=== PATIENT | female | born 2000 | race American Indian/Alaskan Native ===

== ENCOUNTER 2021-08-24 23:19 | Outpatient (CLI) | payer MEDICAID | END 2021-08-25 00:47 | disposition home or self-care (01) | LOC: TRG 23:19 → APU 23:27 → TRG 08-25 00:47 | PROVIDERS: ATTEND Obstetrics & Gynecology | DX: Z34.93 Encounter for supervision of normal pregnancy, unspecified, third trimester (principal); Z3A.39 39 weeks gestation of pregnancy | CPT/HCPCS: 59025 ==

== ENCOUNTER 2021-08-26 19:48 | Inpatient (IN) | payer MEDICAID ==
[2021-08-26] MEDS ORDERED: LACTATED RINGERS 1,000 ML ONE (21:39)
[2021-08-26] MEDS ORDERED: LACTATED RINGERS 250 ML IV SOLN IV ONE (21:57)
[2021-08-26] MEDS ORDERED: NalbUPHINE 10 MG/1 ML INJ IV PRN (21:57)
[2021-08-26] MEDS ORDERED: diphenhydrAMINE 50 MG/ML VIAL IV PRN (21:57)
[2021-08-26] MEDS ORDERED: NALOXONE 2 MG/2 ML INJ IV PRN (21:57)
[2021-08-26] MEDS ORDERED: ONDANSETRON 4 MG/2 ML INJ IV PRN (21:57)
[2021-08-26] MEDS ORDERED: AMPICILLIN/NS 2 GM/100 ML 2 GM/100 ML BAG IV ONE (21:58)
[2021-08-26] MEDS ORDERED: fentaNYL-BUPIV 2 MCG/ML-0.125% 200 MCG/100 ML BAG EPIDURAL SCH (22:00)
[2021-08-26] MEDS ORDERED: BUTORPHANOL 2 MG/1 ML INJ IV PRN (22:03)
[2021-08-26] MEDS ORDERED: LACTATED RINGERS 1,000 ML IV SCH (22:15)
[2021-08-26 22:20] LABS: Basophils % (Auto) 0.2 % (0.0-1.8); Eosinophils % (Auto) 0.2 % (0.0-4.3); Hematocrit 33.7 % (30.3-42.9); Hemoglobin 11.1 gm/dl (10.1-14.3); Lymphocytes # (Auto) 1.5 K/mm3 (1.2-5.4); Lymphocytes % (Auto) 8.2 % (13.4-35.0); Mean Corpuscular HGB Conc 33 % (30-34); Mean Corpuscular Volume 83 fl (79-97); Monocytes # (Auto) 0.8 K/mm3 (0.0-0.8); Monocytes % (Auto) 4.1 % (0.0-7.3); Platelet Count 258 K/mm3 (140-440); Red Blood Count 4.06 M/mm3 (3.65-5.03); Red Cell Distribution Width 15.7 % (13.2-15.2)
--- NOTE | 2021-08-26 22:52 | Anesthesia Consultation ---
Anesthesia Consult and Med Hx Date of service: 08/26/21 - Airway Anesthetic Teeth Evaluation: Good ROM Head & Neck: Adequate Mental/Hyoid Distance: Adequate Mallampati Class: Class III Intubation Access Assessment: Possibly Difficult - Pulmonary Exam CTA: Yes - Cardiac Exam Cardiac Exam: RRR - Pre-Operative Health Status ASA Pre-Surgery Classification: ASA2 Proposed Anesthetic Plan: Epidural - Pulmonary Hx Smoking: No Hx Asthma: Yes Hx Sleep Apnea: No - Cardiovascular System Hx Hypertension: No Hx Heart Attack/AMI: No Hx Angina: No - Central Nervous System Hx Seizures: No Hx Psychiatric Problems: No - Gastrointestinal Hx Gastroesophageal Reflux Disease: No - Endocrine Hx Renal Disease: No Hx Liver Disease: No Hx Insulin Dependent Diabetes: No Hx Non-Insulin Dependent Diabetes: No Hx Hypothyroidism: No Hx Hyperthyroidism: No - Hematic Hx Anemia: Yes Hx Sickle Cell Disease: No - Other Systems Hx Alcohol Use: No Hx Obesity: Yes
--- NOTE | 2021-08-26 22:54 | Progress Note ---
Labor Epidural - Labor Epidural Start Time: 22:30 Stop Time: 22:46 Performed by:: BONY KHAN Procedure: Patient is requesting epidural for labor and pain. H&P, labs were reviewed. Patient IDed, H&P reviewed, all questions and concerns were answered, and consent was signed. Timeout was performed at bedside. Patient in sitting position. Sterile prep and drape was performed. 3ml of 1% lidocaine skin wheal at L[2]- L [3]. 18-gauge hustead epidural needle was advanced without success. 3ml of 1% lidocaine skin wheal at L[3]- L [4]. 18-gauge hustead epidural needle was advanced to loss of resistance with air technique 9cm. Negative CSF negative blood. Epidural catheter advanced to [14] centimeters. [negative] Aspiration [negative] test dose. Sterile dressing applied. Patient tolerated procedure.
[2021-08-26] MEDS ORDERED: OXYTOCIN DRIP 30 UNITS/500 ML BAG IV SCH (23:00)
[2021-08-26] MEDS: ePHEDrine SULFATE 50 MG/1 ML INJ IV PRN ×2 (23:18→23:21)
--- NOTE | 2021-08-26 23:50 | History and Physical Report ---
History of Present Illness Date of examination: 08/26/21 Date of admission: 08/26/21 Chief complaint: painful contractions. History of present illness: Primigravida, MARIA E 08/29/21. Reported no complications. Past History Past Medical History: asthma Past Surgical History: no surgical history - Obstetrical History Expected Date of Delivery: 08/29/21 Actual Gestation: 39 Week(s) 4 Day(s) : 1 Medications and Allergies Allergies Allergy/AdvReac Type Severity Reaction Status Date / Time No Known Allergies Allergy Verified 08/26/21 21:45 Active Meds: Active Medications Butorphanol Tartrate (Butorphanol 2 Mg/1 Ml Inj) 2 mg IV Q2H PRN PRN Reason: Labor Pain Diphenhydramine HCl (Diphenhydramine 50 Mg/Ml Vial) 12.5 mg IV Q2H PRN PRN Reason: Itching Ephedrine Sulfate (Ephedrine Sulfate 50 Mg/1 Ml Inj) 10 mg IV Q2M PRN PRN Reason: Hypotension Last Admin: 08/26/21 23:21 Dose: 10 mg Documented by: Fentanyl/Bupivacaine/Sodium Chlor (Fentanyl-Bupiv 2 Mcg/Ml-0.125%) 200 mcg in 100 mls @ 12 mls/hr EPIDURAL TITR BIRD; Protocol Oxytocin/Sodium Chloride (Pitocin/Ns 30 Unit/500ml) 30 units in 500 mls @ 1 mls/hr IV TITR BIRD; Protocol Ampicillin Sodium (Ampicillin/Ns 1 Gm/50 Ml) 1 gm in 50 mls @ 100 mls/hr IV Q4H BIRD; Protocol Lactated Ringer's (Lactated Ringers) 1,000 mls @ 125 mls/hr IV DIRECT BIRD Last Admin: 08/26/21 22:41 Dose: 125 mls/hr Documented by: Nalbuphine HCl (Nalbuphine 10 Mg/1 Ml Inj) 2.5 mg IV Q2H PRN PRN Reason: Itching Naloxone HCl (Naloxone 2 Mg/2 Ml Inj) 0.2 mg IV Q5M PRN PRN Reason: Respiratory sedation Ondansetron HCl (Ondansetron 4 Mg/2 Ml Inj) 4 mg IV Q8H PRN PRN Reason: Nausea And Vomiting Review of Systems All systems: negative Genitourinary: leakage of fluid, contractions - Vital Signs Vital signs: Vital Signs Temp Pulse Resp BP Pulse Ox 98.0 F 86 18 129/69 100 08/26/21 20:30 08/26/21 20:30 08/26/21 20:30 08/26/21 20:30 08/26/21 20:30 Temp Pulse Resp BP Pulse Ox 98.0 F 98 H 18 117/55 100 08/26/21 20:30 08/26/21 23:39 08/26/21 20:30 08/26/21 23:38 08/26/21 23:39 - Physical Exam Breasts: Positive: deferred Lungs: Positive: Normal air movement Abdomen: Positive: distention Genitourinary (Female): Positive: normal external genitalia Vagina: Positive: normal moisture Uterus: Positive: enlarged, normal contour Anus/Rectum: Positive: normal perianal skin Extremities: Positive: normal Deep Tendon Reflex Grade: Normal +2 - Obstetrical FHR: category 1 Uterine Contraction Monitor Mode: External Cervical Dilatation: 7 Cervical Effacement Percentage: 100 (pelvis adequate) station: 0+1 Uterine Contraction Intensity: Moderate Results Result Diagrams: 08/26/21 21:50 Abnormal lab results 08/26/21 Range/Units 21:50 WBC 18.6 H (4.5-11.0) K/mm3 MCH 27 L (28-32) pg RDW 15.7 H (13.2-15.2) % Lymph % (Auto) 8.2 L (13.4-35.0) % Seg Neutrophils % 87.3 H (40.0-70.0) % Seg Neutrophils # 16.2 H (1.8-7.7) K/mm3 All other labs normal. Assessment and Plan - Patient Problems (1) Active labor Current Visit: Yes Status: Acute Plan to address problem: Vag delivery expected.
[2021-08-27] MEDS ORDERED: MINERAL OIL 30 ML ORAL LIQD ONE (00:01)
[2021-08-27] MEDS ORDERED: LANOLIN/ZINC/DIMETHICONE (LANSINOH) 7 GM TP PRN (00:57)
[2021-08-27] MEDS ORDERED: WITCH HAZEL/ GLYCERIN PAD TP PRN (00:57)
[2021-08-27] MEDS ORDERED: PROMETHAZINE 25 MG RECT SUPP PR PRN (00:57)
[2021-08-27] MEDS ORDERED: ACETAMINOPHEN 325 MG TAB PO PRN (00:57)
[2021-08-27] MEDS ORDERED: diphenhydrAMINE 25 MG CAP PO PRN (00:57)
[2021-08-27] MEDS ORDERED: HYDROcodone/ACETAMINOPHEN 5-325 MG TAB PO PRN (00:57)
[2021-08-27] MEDS ORDERED: ONDANSETRON 4 MG/2 ML INJ IV PRN (00:57)
[2021-08-27] MEDS ORDERED: MAGNESIUM HYDROXIDE (MOM) ORAL LIQD UDC PO PRN (00:57)
[2021-08-27] MEDS ORDERED: KETOROLAC 30 MG/1 ML INJ IV PRN (00:57)
[2021-08-27] MEDS ORDERED: PROMETHAZINE 25 MG TAB PO PRN (00:57)
--- NOTE | 2021-08-27 01:09 | Procedure Note ---
OB Delivery Note - Delivery Date of Delivery: 08/27/21 Surgeon: CHIRAG JIMENEZ Estimated blood loss: <100cc - Vaginal Delivery presentation: vertex Delivery position: OA Intrapartum events: none, PROM->1hr before delivery Delivery induction: none Delivery monitor: external FHT, external uterine Route of delivery: Delivery placenta: spontaneous, expressed Delivery cord: 3 umbilical vessels Episiotomy: none Delivery laceration: none Anesthesia: epidural - A at 1 minute: 8 at 5 minutes: 9 Infant Gender: Female
[2021-08-27] MEDS ORDERED: AMPICILLIN/NS 1 GM/50 ML 1 GM/50 ML BAG IV SCH (02:00)
[2021-08-27] MEDS: IBUPROFEN 600 MG TAB PO SCH ×3 (04:54→18:05)
--- NOTE | 2021-08-27 08:17 | Post Anesthesia Evaluation ---
- Post Anesthesia Evaluation Patient Participated: Yes Airway Patent: Yes Stable Respiratory Function: Yes Nausea/Vomiting: No Temp > 96.8F: Yes Pain Manageable: Yes Adequeate Hydration: Yes Anesthesia Complications: No Block Receding Appropriately: Yes Patient on Ventilator: No
[2021-08-27] MEDS: DOCUSATE SODIUM 100 MG CAP PO SCH ×2 (10:21→22:14)
[2021-08-27 14:38] LABS: Hematocrit 32.5 % (30.3-42.9); Hemoglobin 10.7 gm/dl (10.1-14.3)
[2021-08-28] MEDS: IBUPROFEN 600 MG TAB PO SCH ×4 (00:32→17:26)
[2021-08-28] MEDS ORDERED: TETANUS,DIPH,PERTUSS(ACELL) VACCINE 0.5 ML SYRINGE IM ONE (06:00)
--- NOTE | 2021-08-28 10:24 | Progress Note ---
Assessment and Plan - Patient Problems (1) Active labor Current Visit: Yes Status: Acute (2) Status post normal vaginal delivery Current Visit: Yes Status: Acute Plan to address problem: Stable and ready for home later today/early next morning if all remain ok. Subjective - Subjective Date of service: 08/28/21 Principal diagnosis: Status post day 1.5 Interval history: Primigravida, MARIA E 08/29/21. Reported no complications. Patient reports: appetite normal, voiding normally, pain well controlled, ambulating normally [place]: doing well Objective - Vital Signs Latest vital signs: Vital Signs Temp Pulse Resp BP BP Pulse Ox Pulse Ox 08/28/21 08:00 100 08/28/21 07:30 97.8 F 82 20 129/54 97 08/27/21 23:35 98.0 F 86 18 136/58 96 08/27/21 19:50 100 08/27/21 15:50 98 F 100 H 20 110/57 08/27/21 13:08 98.1 F 100 H 20 110/46 Intake and Output 08/27/21 08/28/21 08/28/21 23:59 07:59 15:59 Intake Total 120 400 Balance 120 400 Intake: Oral 120 400 Other: Total, Intake Amount 120 200 # Voids Void 1 1 - Exam Breasts: Present: deferred Lungs: Present: Normal air movement Abdomen: Present: normal appearance, soft, normal bowel sounds Uterus: Present: normal, firm Extremities: Present: normal Deep Tendon Reflex Grade: Normal +2
--- NOTE | 2021-08-28 10:28 | Discharge Summary ---
Providers - Providers Date of Admission: 08/27/21 01:00 Date of discharge: 08/28/21 Attending physician: CHIRAG JIMENEZ MD Primary care physician: CHIRAG JIMENEZ MD Hospitalization Reason for admission: active labor, IUP at term Delivery: Episiotomy: none Laceration: none Other procedures: none complications: none Discharge diagnosis: IUP at term delivered baby: female Condition at discharge: Good Disposition: 01 HOME / SELF CARE / HOMELESS - Discharge Diagnoses (1) Active labor Status: Resolved (2) Status post normal vaginal delivery Status: Acute Plan - Provider Discharge Summary Activity: routine, no sex for 6 weeks, no heavy lifting 4 weeks, no strenuous exercise Diet: routine Instructions: routine Additional instructions: [] Smoking cessation referral if applicable(refer to patient education folder for contact #) [] Refer to [facility]'s [facility] Booklet Call your doctor immediately for: * Fever > 100.5 * Heavy vaginal bleeding ( >1 pad per hour) * Severe persistent headache * Shortness of breath * Reddened, hot, painful area to leg or breast * Drainage or odor from incision. * Keep incision clean and dry at all times and follow doctor's instructions regarding bathing/showering - Follow up plan Follow up: CHIRAG JIMENEZ MD [Primary Care Provider] - 7 Days Forms: [facility] Discharge Summary
[2021-08-28] MEDS: DOCUSATE SODIUM 100 MG CAP PO SCH ×2 (11:40→22:27)
[2021-08-28] MEDS ORDERED: PNEUMOCOCCAL 23 Valent 0.5 ML VIAL IM ONE (12:00)
[2021-08-29] MEDS: IBUPROFEN 600 MG TAB PO SCH ×2 (00:09→06:10)
[2021-08-29 07:58] VITALS: BP 135/79
[2021-08-29] MEDS ORDERED: MEASLES, MUMPS & RUBELLA 12,500 UNIT/0.5 ML VACCINE SUB-Q ONE (10:40)
== END 2021-08-29 10:20 | disposition home or self-care (01) | DRG 775 ==
LOC: TRG 19:48 → APU 19:56 → LD 22:25 → TRG 08-27 00:57 → LD 08-27 01:00 → OB 08-27 02:44
PROVIDERS: ADMIT Obstetrics & Gynecology; ATTEND Obstetrics & Gynecology
PROC: 10E0XZZ Delivery of Products of Conception, External Approach (ICD-10-PCS; principal; 2021-08-27)
PROC: 3E0R3BZ Introduction of Anesthetic Agent into Spinal Canal, Percutaneous Approach (ICD-10-PCS; 2021-08-27)
PROC: 00HU33Z Insertion of Infusion Device into Spinal Canal, Percutaneous Approach (ICD-10-PCS; 2021-08-27)
DX: O42.02 Full-term premature rupture of membranes, onset of labor within 24 hours of rupture (principal); Z3A.39 39 weeks gestation of pregnancy; Z37.0 Single live birth; Z20.822 Contact with and (suspected) exposure to COVID-19; O99.52 Diseases of the respiratory system complicating childbirth; J45.909 Unspecified asthma, uncomplicated
CPT/HCPCS: 36415; 59025; 84112; 85014; 85018; 85025; 86592; 86706; 86762; 86850; 86900; 86901; 87806; 90471; 90715; 90732; G0378; J0290; J7120; U0003

== ENCOUNTER 2022-02-03 20:47 | Emergency (ER) | payer MEDICAID ==
[2022-02-03 22:32] VITALS: BP 141/63
[2022-02-03] MEDS ORDERED: LIDOCAINE-MPF (1%) 10 MG/1 ML VIAL 5 ML INFILTRATI ONE (23:44)
[2022-02-03] MEDS ORDERED: CLINDAMYCIN 300 MG CAP PO ONE (23:44)
[2022-02-03] MEDS ORDERED: IBUPROFEN 600 MG TAB PO ONE (23:44)
--- NOTE | 2022-02-04 01:53 | Emergency Department Report ---
ED General Adult HPI - General Chief complaint: Dental/Oral Stated complaint: LARGE PAINFUL ABSCESS Source: patient Mode of arrival: Ambulatory Limitations: No Limitations - History of Present Illness Initial comments: Patient is a 21-year-old -French female with a history of morbid obesity and asthma presents to the ED with complaint of acute onset persistent painful left mandibular gingival pain and swelling and left cheek mild erythematous maculopapular painful rash for the last 3 days. Patient states that the pain is especially worsened in the last 12 hours such that any speech or eating makes the pain worse. Patient denies fever, chills, nausea, vomiting, dental pain, dizziness, neck pain, sore throat, headache, chest pain or shortness of breath, diarrhea or abdominal pain. MD Complaint: left cheek swollen painful rash -: Sudden, days(s) (3) Location: face (left cheek) Radiation: non-radiation Severity scale (0 -10): 6 Quality: aching, sharp Consistency: constant Improves with: none Worsens with: eating Associated Symptoms: denies other symptoms, rash (Swollen, painful rash on left cheek). denies: confusion, chest pain, cough, diaphoresis, fever/chills, headaches, loss of appetite, malaise, nausea/vomiting, seizure, shortness of breath, syncope, weakness Treatments Prior to Arrival: none - Related Data Previous Rx's Medication Instructions Recorded Last Taken Type Clindamycin [Clindamycin CAP] 300 mg PO Q6H #40 cap 02/04/22 Unknown Rx Ibuprofen [Motrin] 800 mg PO Q8HR PRN #30 tablet 02/04/22 Unknown Rx Ondansetron [Zofran Odt] 4 mg PO Q8HR PRN #15 tab.rapdis 02/04/22 Unknown Rx Allergies Allergy/AdvReac Type Severity Reaction Status Date / Time No Known Allergies Allergy Verified 08/26/21 21:45 ED Review of Systems ROS: Stated complaint: LARGE PAINFUL ABSCESS Other details as noted in HPI Constitutional: denies: chills, fever Eyes: denies: eye pain, eye discharge, vision change ENT: dental pain (Swollen painful left mandibular gingiva), other (Left cheek swelling with pain due to a mild erythematous rash). denies: ear pain, throat pain Respiratory: denies: cough, shortness of breath, wheezing Cardiovascular: denies: chest pain, palpitations Endocrine: no symptoms reported Gastrointestinal: denies: abdominal pain, nausea, diarrhea Genitourinary: denies: urgency, dysuria, discharge Musculoskeletal: denies: back pain, joint swelling, arthralgia Skin: denies: rash, lesions Neurological: denies: headache, weakness, paresthesias Psychiatric: denies: anxiety, depression Hematological/Lymphatic: denies: easy bleeding, easy bruising ED Past Medical Hx - Past Medical History Previous Medical History?: Yes Hx Hypertension: No Hx Heart Attack/AMI: No Hx Congestive Heart Failure: No Hx Diabetes: No Hx Deep Vein Thrombosis: No Hx Liver Disease: No Hx Renal Disease: No Hx Sickle Cell Disease: No Hx Seizures: No Hx Asthma: Yes Hx COPD: No Hx HIV: No - Surgical History Past Surgical History?: No - Social History Smoking Status: Never Smoker - Medications Home Medications: Home Medications Medication Instructions Recorded Confirmed Last Taken Type Clindamycin [Clindamycin CAP] 300 mg PO Q6H #40 cap 02/04/22 Unknown Rx Ibuprofen [Motrin] 800 mg PO Q8HR PRN #30 tablet 02/04/22 Unknown Rx Ondansetron [Zofran Odt] 4 mg PO Q8HR PRN #15 tab.rapdis 02/04/22 Unknown Rx ED Physical Exam - General Limitations: No Limitations General appearance: alert, in no apparent distress - Head Head exam: Present: atraumatic, normocephalic, normal inspection - Eye Eye exam: Present: normal appearance, PERRL, EOMI Pupils: Present: normal accommodation - ENT ENT exam: Present: mucous membranes moist, normal external ear exam, other (Palpable left mandibular gingiva tenderness with swelling; swollen, tender mild erythematous maculopapular rash on left cheek) - Neck Neck exam: Present: normal inspection, full ROM, lymphadenopathy. Absent: tenderness - Respiratory Respiratory exam: Present: normal lung sounds bilaterally. Absent: respiratory distress, wheezes, rales, rhonchi, chest wall tenderness, accessory muscle use, decreased breath sounds - Cardiovascular Cardiovascular Exam: Present: regular rate, normal rhythm, normal heart sounds. Absent: systolic murmur, diastolic murmur, rubs, gallop - GI/Abdominal GI/Abdominal exam: Present: soft, normal bowel sounds. Absent: tenderness, guarding, rebound, hyperactive bowel sounds, hypoactive bowel sounds, mass - Extremities Exam Extremities exam: Present: normal inspection, full ROM, normal capillary refill - Back Exam Back exam: Present: normal inspection, full ROM. Absent: tenderness, CVA tenderness (R), CVA tenderness (L), muscle spasm, paraspinal tenderness, ve rtebral tenderness - Neurological Exam Neurological exam: Present: alert, oriented X3, CN II-XII intact, normal gait, reflexes normal - Psychiatric Psychiatric exam: Present: normal affect, normal mood - Skin Skin exam: Present: warm, dry, intact, normal color. Absent: rash ED Course Vital Signs 02/03/22 22:28 Temperature 98.2 F Pulse Rate 89 Respiratory 16 Rate Blood Pressure 141/63 [Right] O2 Sat by Pulse 100 Oximetry - I & D Left Cheek Type of Procedure: Simple Site: left cheek Blade Size: 11 I & D Procedure: betadine prep, sterile drapes applied, sterile dressing applied, gauze wick placed Progress: There was cleaned extensively with normal saline and Betadine solution. Lidocaine 1% solution was infiltrated around the area for anesthesia. When anesthesia was fully achieved, an 18-gauge needle was used to us. The contents of the swollen rash and a thick yellow purulent 10 cc discharge drained from the wound. A size 11 scalpel blade was used to open up the wound further and the contents of the wound extensively expressed and emptied and debrided. Patient tolerated the procedure well. The wound was then cleaned extensively normal saline and dressed appropriately with 4 x 4 gauze and Tegaderm. ED Medical Decision Making - Medical Decision Making This is a 21-year-old -French female with a history of morbid obesity and asthma presents to the ED with complaint of acute onset persistent painful left mandibular gingival pain and swelling and left cheek mild erythematous maculopapular painful rash for the last 3 days. Patient states that the pain is especially worsened in the last 12 hours such that any speech or eating makes the pain worse. In the ED, patient is alert and oriented x3 and is not in any distress. Patient was treated for pain in the ED and also given initial oral antibiotics. The left cheek swelling rash was incised and drained per protocol, after the area was cleaned and lidocaine 1% solution infiltrated in the area of for anesthesia. The area was then incised and drained and thick purulent discharge was drained from the area. Patient tolerated the procedure well. On reevaluation, patient's pain is well controlled medication. The wound was then dressed appropriately with 4 x 4 gauze and Tegaderm and the patient was discharged home on pain medications and antibiotics and advised to follow-up with her primary care physician in 7 to 10 days for reevaluation. Patient was advised return to the ED immediately if symptoms get worse. - Differential Diagnosis Cellulitis; gingivitis; facial abscess Critical care attestation.: If time is entered above; I have spent that time in minutes in the direct care of this critically ill patient, excluding procedure time. ED Disposition Clinical Impression: Cutaneous abscess of face, Acute gingivitis Disposition: HOME / SELF CARE / HOMELESS Is pt being admited?: No Does the pt Need Aspirin: No Condition: Stable Instructions: Skin Abscess, [id number] Additional Instructions: Take medication with food, drink plenty of fluids and follow-up with a primary care physician in 7 to 10 days for reevaluation. Return to the ED immediately if symptoms get worse Prescriptions: Clindamycin [Clindamycin CAP] 300 mg PO Q6H #40 cap Ibuprofen [Motrin] 800 mg PO Q8HR PRN #30 tablet PRN Reason: Pain , Severe (7-10) Ondansetron [Zofran Odt] 4 mg PO Q8HR PRN #15 tab.rapdis PRN Reason: Nausea Referrals: FERNANDO NICOLE MD [Primary Care Provider] - 3-5 Days Forms: Work/School Release Form(ED) Time of Disposition: 01:50 Print Language: PASHT[place]
== END 2022-02-04 00:49 | disposition home or self-care (01) ==
LOC: ED 20:47
DX: L02.01 Cutaneous abscess of face (principal); K05.00 Acute gingivitis, plaque induced
CPT/HCPCS: 10060; 99282; J3490